=== PATIENT | male | born 1950 | race Asian ===

== ENCOUNTER → 2016-07-25 | Outpatient (CLI) | payer BC ==
[~2016-07-25] MED LIST: ASPCH81 PO; ATOR-24 PO; CZR50 PO; GLC500 PO; INSDGI SC; REPA2TAB12 PO; TERA5CAP PO
--- NOTE | 2016-07-25 11:12 | DIAGNOSTIC IMAGING REPORT ---
RIGHT SHOULDER MIN 2 VIEWS ROUTINE CLINICAL HISTORY: Right shoulder pain. COMPARISON: Right shoulder radiograph December 16, 2014. FINDINGS: Alignment of the right shoulder is anatomic. There is no fracture or suspicious lesion. There is moderate osteoarthritis of the right acromioclavicular joint and mild osteoarthritis of the glenohumeral joint. IMPRESSION: Moderate osteoarthritis of the right acromioclavicular joint and mild osteoarthritis of the glenohumeral joint. Electronically signed by: Madhu Mayen M.D. 07/25/2016 11:11 AM Dictated Date/Time: 07/25/2016 11:09 AM
== END | disposition home or self-care (01) ==
LOC: C.RAD1850 10:38
PROVIDERS: ATTEND Family Medicine
DX: M75.01 Adhesive capsulitis of right shoulder (principal)

== ENCOUNTER → 2016-08-02 | Outpatient (CLI) | payer BC ==
--- NOTE | 2016-08-02 13:43 | DIAGNOSTIC IMAGING REPORT ---
LEFT FOURTH FINGER RADIOGRAPHS CLINICAL HISTORY: Left fourth finger pain. COMPARISON: None FINDINGS: Alignment of the left fourth finger is anatomic. There is a lucency within the distal tuft shown on AP and oblique projections. This is probably artifactual. No definite fracture is identified. Joint spaces are preserved. IMPRESSION: Lucency within the distal tuft of the distal phalanx of the left fourth finger. This is likely artifactual although a nondisplaced fracture could appear similar. Otherwise, unremarkable left fourth finger radiographs. Electronically signed by: Madhu Mayen M.D. 08/02/2016 1:42 PM Dictated Date/Time: 08/02/2016 1:40 PM
== END | disposition home or self-care (01) ==
LOC: C.RDSM 11:00
PROVIDERS: ATTEND Physician Assistant
DX: M79.642 Pain in left hand (principal)

== ENCOUNTER → 2016-08-16 | Outpatient (CLI) | payer BC ==
--- NOTE | 2016-08-16 13:34 | DIAGNOSTIC IMAGING REPORT ---
LEFT FOURTH FINGER 3 VIEWS CLINICAL HISTORY: Follow-up fracture. FINDINGS: 3 views of the left fourth finger are compared to study dated 08/02/2016. The skeletal structures are well mineralized. Again seen is a nondistracted fracture through the tuft of the fourth distal phalanx with mild overlying soft tissue edema. Alignment is unchanged. No additional fracture is seen. The fourth metacarpophalangeal and interphalangeal joints are well-maintained. IMPRESSION: Unchanged alignment of a nondistracted fracture through the tuft of the fourth distal phalanx. Electronically signed by: David Varner M.D. 08/16/2016 1:33 PM Dictated Date/Time: 08/16/2016 1:32 PM
== END | disposition home or self-care (01) ==
LOC: C.RDSM 15:39
PROVIDERS: ATTEND Physician Assistant
DX: Z09 Encounter for follow-up examination after completed treatment for conditions other than malignant neoplasm (principal); S62.665D Nondisplaced fracture of distal phalanx of left ring finger, subsequent encounter for fracture with routine healing; X58.XXXD Exposure to other specified factors, subsequent encounter

== ENCOUNTER → 2017-05-06 | Outpatient (CLI) | payer OTHER ==
--- NOTE | 2017-05-06 13:37 | DIAGNOSTIC IMAGING REPORT ---
CHEST 2 VIEWS ROUTINE CLINICAL HISTORY: COUGH dyspnea COMPARISON STUDY: 02/07/2014 FINDINGS: Mild stable cardiomegaly. Diaphragms are smooth. Lungs are considered clear. Old compression deformity of what appears to be T12.. This is unchanged from the prior exam. IMPRESSION: No acute process. The above report was generated using voice recognition software. It may contain grammatical, syntax or spelling errors. Electronically signed by: Vivek Medina M.D. 05/06/2017 1:36 PM Dictated Date/Time: 05/06/2017 1:35 PM
== END | disposition home or self-care (01) ==
LOC: C.RAD1850 13:05
PROVIDERS: ATTEND Family Medicine
DX: R05 Cough (principal)

== ENCOUNTER → 2017-08-12 | Outpatient (CLI) | payer OTHER ==
[2017-08-13 06:22] LABS: HEMOGLOBIN A1C 7.3 % (4.5-5.6)
== END | disposition home or self-care (01) ==
LOC: C.LAB1850 14:50
PROVIDERS: ATTEND Nurse Practitioner Adult Health
DX: E11.9 Type 2 diabetes mellitus without complications (principal); N40.1 Benign prostatic hyperplasia with lower urinary tract symptoms